=== PATIENT | male | born 1945 | race Caucasian/White ===

== ENCOUNTER 2016-04-05 09:14 | Day surgery (SDC) | payer OTHER, MEDICARE ==
--- NOTE | 2016-04-05 08:57 | PCMBPN ---
Brief Post Op Note: Date of Procedure: 04/05/16 Preoperative Diagnosis: 1. left elbow dislocation and open laceration Postoperative Diagnosis: 1. [Same] Procedure: left elbow manipulation and exam under anesthesia with fluoroscopy Surgeon: Noel Paez MD Assist:None Anesthesia: MAC Findings: pt was examined under anesthesia with fluoro and was stable from 45 degrees to 120 degrees of flexion. No signs of instability with supination and pronation Condition: stable vitals, transferred to pacu Complications: None IV Fluids: 400 mLs of LR Urine Output: 0 mLs Estimated Blood Loss: 0 mLs Tourniquet Time: [N/A] Specimens: [N/A] Implants: None Drains: [N/A] PLAN: NWB on the LUE. Gosper brace locked at 90 degrees. ROM in brace from 50 to 110 degrees for next two weeks
[~2016-04-05 09:14] MED LIST: CEFAZOLIN SODIUM 2 GRAM PREMIX 100 ML IV PRN; FENTANYL 5 ML ONE; LIDOCAINE 2% (PRES FREE) 5 ML VIAL ONE; MIDAZOLAM HCL 5 MG/5 ML VIAL ONE; PROPOFOL 20 ML IV ONE; ROCURONIUM BROMIDE 10 MG/ML DOSE IV ONE
[2016-04-05] MEDS ORDERED: CEFAZOLIN SODIUM 2 GRAM PREMIX 100 ML IV ONE (09:24)
[2016-04-05] MEDS ORDERED: LACTATED RINGERS 1,000 ML ONE ×2 (09:24→14:07)
[2016-04-05] MEDS ORDERED: IV START KIT ONE (09:25)
[2016-04-05] MEDS ORDERED: BUPIVACAINE 0.25% (PRES FREE) 30 ML VIAL ONE (10:08)
[2016-04-05] MEDS ORDERED: DIPHENHYDRAMINE HCL 50 MG/1 ML VIAL ONE (10:50)
[2016-04-05] MEDS ORDERED: DEXAMETHASONE SOD PHOS 4 MG/1 ML VIAL ONE ×2 (10:50)
[2016-04-05] MEDS ORDERED: ONDANSETRON 4 MG/2ML 2 ML VIAL ONE (10:50)
[2016-04-05] MEDS ORDERED: ONDANSETRON 4 MG/2ML 2 ML VIAL IV PRN ×2 (11:34→14:49)
[2016-04-05] MEDS ORDERED: HYDROMORPHONE HCL 1 MG/ML SYRINGE IV PRN (11:34)
[2016-04-05] MEDS ORDERED: LABETALOL HCL 5 MG/ML 20ML VIAL IV PRN (11:34)
[2016-04-05] MEDS ORDERED: MEPERIDINE 25 MG/ML SYRINGE IV PRN (11:34)
[2016-04-05] MEDS ORDERED: HYDRALAZINE HCL 20 MG/1 ML VIAL IV PRN (11:34)
[2016-04-05] MEDS ORDERED: PROMETHAZINE HCL 25 MG/ML VIAL IM PRN (11:34)
[2016-04-05] MEDS ORDERED: FENTANYL 100 MCG/2 ML VIAL IV PRN (11:34)
[2016-04-05] MEDS ORDERED: NALOXONE HCL 0.4 MG/ML VIAL IV PRN (11:34)
[2016-04-05] MEDS ORDERED: ATROPINE SULFATE 0.4 MG/1 ML VIAL IV PRN (11:34)
[2016-04-05] MEDS ORDERED: ROCURONIUM BROMIDE 10 MG/ML DOSE IV ONE ×2 (11:41)
[2016-04-05] MEDS ORDERED: LACTATED RINGERS 1,000 ML IV SCH ×2 (11:45→14:49)
[2016-04-05] MEDS ORDERED: NEOSTIGMINE METHYLSULFATE 1 MG/ML DOSE ONE ×3 (12:10)
[2016-04-05] MEDS ORDERED: GLYCOPYRROLATE 0.2 MG/ML 1ML VIAL ONE ×3 (12:10→12:12)
[2016-04-05] MEDS ORDERED: HYDROMORPHONE HCL 2 MG/ML SYRINGE ONE (12:41)
[2016-04-05] MEDS ORDERED: HYDROMORPHONE HCL 1 MG/ML SYRINGE ONE (13:41)
[2016-04-05] MEDS ORDERED: FENTANYL 100 MCG/2 ML VIAL ONE (13:41)
[2016-04-05] MEDS ORDERED: LIDOCAINE 1%/EPI 1:100,000 (MULTI DOSE) 30 ML VIAL ONE (14:06)
--- NOTE | 2016-04-05 14:29 | PCMBPN ---
Brief Post Op Note: Date of Procedure: 04/05/16 Preoperative Diagnosis: 1. right shoulder rotator cuff tear and instability and biceps tendonitis Postoperative Diagnosis: 1. right shoulder rotator cuff tear (supra and infra), long head of the biceps subluxation Procedure: right shoulder arthroscopic rotator cuff repair, arthroscopic biceps tenotomy, and arthroscopic debridement Surgeon: Noel Paez MD Assist:Blaine MORA Anesthesia: GETA Findings: as expected, the patient's arthroscopy showed a normal subscapaularis and a large tear of the supraspinatus and infraspinatus. This was fixed with 3 side to side sutures and one triple loaded anchor 4.5mm healix. the patient's biceps was medially subluxated and a biceps tenotomy was performed Condition: extubated, stable vitals, transferred to pacu Complications: None IV Fluids: 1700 mLs of LR Urine Output: 400 mLs Estimated Blood Loss:20 mLs Tourniquet Time: [N/A] Specimens: [N/A] Implants: see above Drains: [N/A] PLAN: NWB on the RUE. SLing at all times. Oxycodone for pain control. Keflex for ryan-op abx. ASA for DVT prophyalxis.
[2016-04-05] MEDS ORDERED: DIPHENHYDRAMINE HCL 50 MG/1 ML VIAL IV PRN (14:49)
[2016-04-05] MEDS ORDERED: MORPHINE SULFATE 2 MG/ML SYRINGE IV PRN (14:49)
[2016-04-05] MEDS ORDERED: ACETAMINOPHEN 325 MG TABLET PO PRN (14:49)
[2016-04-05] MEDS ORDERED: MORPHINE SULFATE 2 MG/ML SYRINGE ONE (14:58)
[2016-04-05] MEDS ORDERED: OXYCODONE HCL 5 MG TABLET ONE ×2 (16:38→17:28)
[2016-04-05] MEDS: OXYCODONE HCL 5 MG TABLET PO PRN ×2 (16:42→17:32)
--- NOTE | 2016-04-06 06:11 | OP ---
Carlo BAJWA : 1945 [id number] DATE OF PROCEDURE: April 05, 2016 PREOPERATIVE DIAGNOSES: Right shoulder rotator cuff tear, instability and biceps tendinitis. POSTOPERATIVE DIAGNOSES: Right shoulder rotator cuff tear with tears of the supraspinatus and infraspinatus and long head of the biceps subluxation. PROCEDURE: RIGHT SHOULDER ARTHROSCOPIC ROTATOR CUFF REPAIR, ARTHROSCOPIC BICEPS TENOTOMY AND ARTHROSCOPIC DEBRIDEMENT. SURGEON: Noel Paez M.D. ACCOUNTING SPECIALIST: Angela Valladares ANESTHESIA: General. FINDINGS: As expected, the patient had an arthroscopy which showed a normal subscapularis, a large tear of the supraspinatus and infraspinatus. This was fixed with three side to side sutures and one triple loaded 4.5 mm Healix anchor, this is a bioabsorbable anchor. The patient had normal appearing glenoid and humeral head cartilage, but the patient's biceps was medially subluxated and a biceps tenotomy was performed. To get the tendon back I had to do an extensive debridement to get the supraspinatus to cover to the medial aspect of the rotator cuff footprint. CONDITION: The patient was extubated with stable vital signs and transferred to the PACU. COMPLICATIONS: None. INTRAVENOUS FLUIDS: 1700 mL of Lactate Ringer's. URINE OUTPUT: 400 mL ESTIMATED BLOOD LOSS: 20 mL SPECIMENS: N/A TOURNIQUET TIME: N/A IMPLANTS: See above. DRAINS: N/A PLAN: The patient will be nonweightbearing on the right upper extremity in a sling at all times for six weeks after surgery and then we will start passive and active assisted motion. Oxycodone and Keflex were given for perioperative prescriptions and aspirin for DVT prophylaxis. INDICATIONS: The patient is a 70-year-old male who sustained an injury to his right shoulder approximately 3 months ago during a fall on November 23, 2015. He was originally seen by a different orthopedic surgeon who diagnosed him with a rotator cuff tear as well as unstable shoulder and also had a concomitant ankle fracture. For this reason the ankle fracture was fixed. The patient has persistent pain in the right side along with persistent numbness and poor motion secondary to weakness of his deltoid. 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 I spoke to the patient regarding the prognosis on this. He has not seen a neurologist but I told him most likely this is something that we would have to observe to see how it improves. In the meantime he continued to have a rotator cuff tear which I told him would have a low likelihood of healing on its own. He and I spoke about the risks, as well as benefits of these tears. Based on his MRI findings, I think that the patient most likely had acute on chronic tear. This tear has gotten larger and I think that it is at risk going onto rotator cuff arthropathy. I spoke to him about potentially performing a surgery which would be an arthroscopic rotator cuff repair where I would inspect the tendon and if possible perform a repair. I am not sure if he has a tear of the long head of the biceps, but preoperatively he does have pain anteriorly and I thought that he may benefit from a biceps tenotomy in addition to the rotator cuff repair. Because of the risk of the nerve block affecting his nerve function I told him that my recommendation would be to avoid inner block for postoperative pain relief which may lead to the patient having increased pain and typical after the surgery. The patient understands these risks and was ready to proceed. Good PROCEDURE DESCRIPTION: The patient was seen in the preoperative area. The right arm was signed with the word "Yes" and my initials. I updated and signed the H&P and confirmed with the patient that the consent form matched our proposed procedure. The patient was seen by the anesthesia team who reviewed with the patient about the risks and benefits of general anesthesia. The patient was transferred from the preoperative area to the operating theater where they were transferred from the stretcher to the operating room bed. Patient had intraoperative SCD's placed for DVT prophylaxis. The patient had a safety belt placed and then the patient was put to sleep without any problems. The patient was then placed in the left lateral decubitus position making sure an axillary roll was placed and all bony prominences were well-padded. The patient was rotated so that their back was approximately 30 degrees tilted posterior and the bed was turned 90 degrees in the room. The patient was then prepped and draped in sterile fashion first with a Betadine scrub, paint and then chlorhexidine. The patient was then placed in balanced suspension with their arm in the Arthrex STAR sleeve. At this point we performed a final time out confirming that the right side was the correct side, everyone in the room confirmed that the procedure matched the consent form and that xrays and MRI images were on the imaging board. We confirmed that Ancef, 2 gram had been given to the patient approximately 30 minutes prior to the final time out. At this time a spinal needle was used with 30 mL with normal saline to insufflate the joint through the posterior portal. Once the shoulder was insufflated a #15 blade was used to incise the skin by the posterior portal and the scope trocar was placed without incident. At this point the patient's anterior portal was made using a spinal needle from an outside-in technique first using a spinal needle to identify the position in the rotator interval followed by an incision with another #15 blade, placement of a switching stick and a 7mm cannula. Once this was in place a 15-point exam was performed using an arthroscopic probe viewing from posterior to anterior and anterior to posterior. The patient had an intact subscapularis, a normal appearing humeral head and glenoid cartilage however he had a large retracted tear. The patient had a biceps tendon which was medially subluxated. I examined this with my arthroscopic probe and elected to perform a biceps tenotomy. This was performed with a VAPR wand. After this was performed I turned my attention to the rotator cuff. I made a lateral portal and while my scope was in the intra-articular space, I placed a free suture and used the arthroscopic elevator to elevate the lower surface of this. Once this was performed I then moved my scope and camera to the subacromial space to better inspect the tear. This was a large L-shaped tear extending into the infraspinatus. Using my arthroscopic rasper I could tell that the tendon itself could lay back if I performed a diagonal type of repair. My plan was to place side to side sutures in addition to a rotator cuff anchor. Next, I used arthroscopic bur to bur the foot print medializing the foot print to get this tendon to heal. I then proceeded to perform an extensive debridement above and below the rotator cuff so that it would be more mobile. At this point I made another incision just off the acromion where I could place an anchor. This was a 4.5 mm Healix triple loaded anchor. I then used the Expressew to pass the sutures of through the tendon and tied these down arthroscopically. With this performed I close the more anterior aspect of the rotator cuff. I did not think that another anchor would be appropriate more posteriorly due to the patient's poor bone quality. I elected to perform a side to side repair bringing the posterior leaflet up to the anterior aspect of this. This was done with three side to side sutures. I was happy with its appearance. At this point with my debridement, biceps tenotomy and rotator cuff performed we were ready to finish. I confirmed good hemostasis and was ready to close. I then irrigated the wound closing the skin with interrupted 4-0 Nylon sutures. Then the dressings were placed including Xeroform, 4x4, ABD along with a cryo-cuff and the patient's arm was placed in a sling. All needle and sponge counts were correct. The patient was awoken without difficulty, taken to the recovery room where the patient had good pain control. The patient will be weight-bearing on the right upper extremity for close to six weeks after surgery. I talked to the patient and the family regarding my prognosis and we will see how he progresses over the next couple of weeks. Job [id number] CC: [place]
== END 2016-04-05 17:34 | disposition home or self-care (01) ==
LOC: SDC 09:14
PROVIDERS: ATTEND Orthopaedic Surgery
PROC: 0LQ14ZZ Repair Right Shoulder Tendon, Percutaneous Endoscopic Approach (ICD-10-PCS; principal; 2016-04-05)
DX: S46.011A Strain of muscle(s) and tendon(s) of the rotator cuff of right shoulder, initial encounter (principal); S46.111A Strain of muscle, fascia and tendon of long head of biceps, right arm, initial encounter; W19.XXXA Unspecified fall, initial encounter; F17.210 Nicotine dependence, cigarettes, uncomplicated; Z79.899 Other long term (current) drug therapy; Z88.8 Allergy status to other drugs, medicaments and biological substances
CPT/HCPCS: 29827; 29823; J1200; J1170; J3010; J1100 ×2; J2270; A9270 ×2; J2250; J2001; J2405; J7120 ×2; J0690